=== PATIENT | male | born 1985 | race Two or more races ===

== ENCOUNTER 2017-08-24 14:22 | Emergency (ER) | payer OTHER ==
[~2017-08-24] VITALS: Ht 175.3 cm; Wt 108.9 kg
[2017-08-24 14:22] VITALS: BP 108/58
[2017-08-24] MEDS ORDERED: oxyCODONE/APAP (5/325 MG) 1 UDTAB TABLET ONE (15:45)
[2017-08-24] MEDS ORDERED: NAPROXEN 250 MG TABLET ONE (15:46)
[2017-08-24] MEDS: NAPROXEN 250 MG TABLET PO ONE (15:48)
[2017-08-24] MEDS: oxyCODONE/APAP (5/325 MG) 1 UDTAB TABLET PO ONE (15:48)
== END 2017-08-24 16:28 | disposition home or self-care (01) ==
LOC: ER 14:25
DX: S39.012A Strain of muscle, fascia and tendon of lower back, initial encounter (principal); M51.26 Other intervertebral disc displacement, lumbar region; X50.1XXA Overexertion from prolonged static or awkward postures, initial encounter; Y93.89 Activity, other specified; Y92.89 Other specified places as the place of occurrence of the external cause; Y99.8 Other external cause status
CPT/HCPCS: 72131-TC; A4606; Z7610